=== PATIENT | male | born 1960 | race Caucasian/White ===

== ENCOUNTER 2016-06-17 20:17 | Emergency (ER) | payer OTHER ==
--- NOTE | 2016-06-17 20:25 | ED CARDIAC/CP/PALPITATIONS ---
History of Present Illness General Chief Complaint: Chest Pain Stated Complaint: BIBA ACHING CP SINCE 11AM, INTERMITTENT, SOB Source: patient Exam Limitations: no limitations Allergies Coded Allergies: NO KNOWN ALLERGIES (UNKNOWN 06/17/16) Triage Nurses Notes Reviewed? yes HPI: This patient is a 48-year-old male with a past medical history including hypertension who presented to the emergency department today for evaluation of intermittent chest pressure since 11:00 this morning. The patient reported that he first noticed the left-sided chest discomfort at about 11:00 this morning. He reported that it was coming and going on its own throughout the day. He reported that as the day went on he started noticing dizziness and some increased shortness of breath. He reported taking a deep breath makes the pain better. No specific provoking factors. The patient denied any headaches, visual changes, jaw pain, arm pain, numbness or tingling to extremities, abdominal pain, nausea, or vomiting. The patient reported that he has had 2 normal stress test in the past. He believes that he has seen Dr. Kim, machine cleaner, in the past. The patient was unable to quantify the pain on a pain scale. He reported that right now the pain is very minimal and has mostly subsided. (CUCO MEYER,JESSICA) Vital Signs & Intake/Output Vital Signs & Intake/Output Vital Signs Date Time Temp Pulse Resp B/P Pulse O2 O2 Flow FiO2 Ox Delivery Rate 06/18 0130 97.6 68 18 130/81 98 Room Air 06/17 2149 96 Room Air 06/17 2149 78 16 159/81 96 Room Air 06/17 2037 97.4 71 18 119/67 99 Room Air 06/17 2021 76 16 157/78 ED Intake and Output 06/18 0000 06/17 1200 Intake Total Output Total Balance Patient 222 lb Weight Reconcile Medications Alprazolam (Xanax) 1 MG TABLET 1 TAB PO TIDPRN PRN anxiety six tabs...[id number] Aspirin (Ecotrin*) 81 MG TABLET. 162 MG PO DAILY HEART/BLOOD (Reported) Cyanocobalamin (Vitamin B-12) (Unknown Strength) TABLET (Unknown Dose) PO DAILY SUPPLEMENT (Reported) Folic Acid (Unknown Strength) CAPSULE (Unknown Dose) PO DAILY SUPPLEMENT ( Reported) Lovastatin 20 MG TABLET 1 TAB PO DAILY CHOLESTEROL (Reported) Pyridoxine HCl (Vitamin B-6) (Unknown Strength) TABLET (Unknown Dose) PO DAILY SUPPLEMENT (Reported) Ramipril 5 MG CAPSULE 1 CAP PO BID BP (Reported) (KATIA LOPEZ,GERBER Arreola) Past History Travel History Traveled to [place] past 21 day No Medical History Any Pertinent Medical History? see below for history Cardiovascular: hypertension Surgical History Surgical History: non-contributory Psychosocial History What is your primary language [place] Family History Hx Contributory? No (JESSICA NORWOOD PA-C) Review of Systems Review of Systems Constitutional: Reports: no symptoms. EENTM: Reports: no symptoms. Respiratory: Reports: see HPI. Cardiovascular: Reports: see HPI. GI: Reports: no symptoms. Genitourinary: Reports: no symptoms. Musculoskeletal: Reports: no symptoms. Skin: Reports: no symptoms. Neurological/Psychological: Reports: see HPI. All Other Systems: Reviewed and Negative (JESSICA NORWOOD PA-C) Physical Exam Physical Exam Cardiovascular: regular rate/rhythm, normal peripheral pulses, NO MURMURS, RUBS, OR GALLOPS. nO CAROTID BRUITS Comments: Well-developed well-nourished person in no acute distress HEENT: Normal EENT exam, head normocephalic, moist mucous membranes PERRLA bilaterally Neck: Supple, no lymphadenopathy. No midline tenderness Back: Normal inspection Respiratory: No respiratory distress. Pulse and his. Lungs clear to auscultation bilaterally with no wheezes, rales, rhonchi Abdomen: Soft, nontender and nondistended with no rebound or guarding. No peritoneal signs Extremity: Normal and equal pulses. Capillary refill less than 2 seconds Neuro: Alert oriented x3, cranial nerves II through XII grossly intact. Skin: No appreciable rash on exposed skin, skin is warm and dry. Psych: Mood and affect is normal Core Measures ACS in differential dx? Yes Severe Sepsis Present: No Septic Shock Present: No (JESSICA NORWOOD PA-C) Progress Differential Diagnosis: AMI, aortic dissection, atrial fibrillation, cholecystitis, CHF/pulm edema, costochondritis, hyperkalemia, hyperthyroid, hyperventilation, musculoskeletal pain, myocarditis, pancreatitis, pericarditis, pneumonia, PSVT, pulmonary embolism, PUD/GERD, PVCs/PACs, unstable angina Diagnostic Imaging: Viewed by Me: Radiology Read. Discussed w/RAD: Radiology Read. CXR Impression: PATIENT: SIRENA BLOOD PRESENT AGE: 56 PATIENT ACCOUNT NO: [id number] : 56 LOCATION: [facility] ORDERING PHYSICIAN: JESSICA NORWOOD PA-C SERVICE DATE: 06/17/16 EXAM TYPE: RAD - XRY-CHEST XRAY, PA AND LATERAL EXAMINATION: XR CHEST CLINICAL INFORMATION: Chest pain. Assess for cardiomegaly. COMPARISON: Chest radiography 05/23/2010. TECHNIQUE: 2 views of the chest were obtained. FINDINGS: No evidence of cardiomegaly. The lungs are well expanded. No focal consolidation, pleural effusion, pulmonary edema, or pneumothorax. No acute osseous abnormalities. IMPRESSION: 1. No cardiomegaly. 2. No evidence of pulmonary edema. DICTATED BY: YAYA RODRIGUEZ MD DATE/TIME DICTATED:06/17/162125 FORM TAMPER:FERDINAND DATE/TIME TRANSCRIBED:06/17/162125 CONFIDENTIAL, DO NOT COPY WITHOUT APPROPRIATE AUTHORIZATION. <Electronically signed in Other Vendor System> SIGNED BY: YAYA RODRIGUEZ MD 06/17/162131 Initial ED EKG: normal axis, normal intervals, LVH, no ST T wave changes, 71 BPM Hand-Off Endorsed To: KATIA LOPEZ,GERBER Arreola Endorsed Time: 2300 Pending: labs (CUCO MEYER,JESSICA) Plan of Care: Orders Procedure Date/time Status TROPONIN LEVEL 06/18 29 Complete EKG 06/18 29 Active THYROID STIMULATING HORMONE 06/18 2019 Complete TROPONIN LEVEL 06/18 2019 Complete MAGNESIUM 06/18 2019 Complete FREE T4 06/18 2019 Complete COMPREHENSIVE METABOLIC PANEL 06/18 2019 Complete CBC WITHOUT DIFFERENTIAL 06/18 2019 Complete EKG 06/18 2019 Active Laboratory Tests 06/18/16 0030: Troponin I < 0.01 06/17/16 2030: Anion Gap 10, Estimated GFR > 60, BUN/Creatinine Ratio 16.3, Glucose 89, Calcium 9.4, Magnesium 2.0, Total Bilirubin 0.5, AST 20, ALT 34, Alkaline Phosphatase 64 , Troponin I < 0.01, Total Protein 6.7, Albumin 4.1, Globulin 2.6, Albumin/ Globulin Ratio 1.6, TSH 1.950, Free T4 1.10, CBC w Diff NO MAN DIFF REQ, RBC 5.22, MCV 82.0, MCH 26.7 L, RDW 13.3, MPV 8.8, Gran % 61.5, Lymphocytes % 30.5, Monocytes % 5.6, Eosinophils % 2.0, Basophils % 0.4, Absolute Granulocytes 6.6 H, Absolute Lymphocytes 3.3, Absolute Monocytes 0.6, Absolute Eosinophils 0.2, Absolute Basophils 0, PUBS MCHC 32.6 L Departure Departure Disposition: HOME OR SELF CARE Condition: Stable Clinical Impression Primary Impression: Chest pain Qualifiers: Chest pain type: unspecified Qualified Code: R07.9 - Chest pain, unspecified Referrals: MASOUD LOPEZ,MING CROSS MD,MING Garcia (PCP/Family) Additional Instructions: Follow-up with machine cleaner whose information has been provided packet. Return for any worsening symptoms or concerns. Departure Forms: Customer Survey General Discharge Information (JESSICA NORWOOD PA-C) Departure Prescriptions: Current Visit Scripts Alprazolam (Xanax) 1 TAB PO TIDPRN PRN anxiety #6 TAB six tabs...[id number] PA/TIMBER SELECTOR Co-Sign Statement Statement: ED Attending supervision documentation- [x] I saw and evaluated the patient. I have also reviewed all the pertinent lab results and diagnostic results. I agree with the findings and the plan of care as documented in the PA's/TIMBER SELECTOR's documentation. pt reports feeling better after xanax... He is chest pain free with benign exam. EKG is unchanged/nonacute. Trop neg x 2. Pt safe for discharge with close follow up by cardiology. Discussed at length. Pt feels comfortable going home. [] I have reviewed the ED Record and agree with the PA's/TIMBER SELECTOR's documentation. [] Additions or exceptions (if any) to the PAs/TIMBER SELECTOR's note and plan are summarized below: [] (KATIA LOPEZ,GERBER Arreola) Critical Care Note Critical Care Note Critical Care Time: 30-74 min (JESSICA NORWOOD PA-C)
[2016-06-17] MEDS ORDERED: VITAMIN B-650 M2 PO (20:35)
[2016-06-17] MEDS ORDERED: LOVASTATIN20 M1 PO (20:35)
[2016-06-17] MEDS ORDERED: ASPIRIN EC81 M1 PO (20:35)
[2016-06-17] MEDS ORDERED: RAMIPRIL5 M1 PO (20:35)
[2016-06-17] MEDS ORDERED: FOLIC ACID0.8 M1 PO (20:36)
[2016-06-17] MEDS ORDERED: VITAMIN B-121000 MC3 PO (20:36)
[2016-06-17 20:51] LABS: ABSOLUTE BASOPHIL COUNT 0 /CUMM (0.0-0.2); ABSOLUTE EOSINOPHIL COUNT 0.2 /CUMM (0.0-0.7); ABSOLUTE GRANULOCYTE CT 6.6 /CUMM (1.4-6.5); ABSOLUTE LYMPH COUNT 3.3 /CUMM (1.2-3.4); ABSOLUTE MONOCYTE COUNT 0.6 /CUMM (0.10-0.60); BASOPHIL % 0.4 % (0.0-2.0); GRANULOCYTE % 61.5 % (42.2-75.2); HEMATOCRIT 42.8 % (42-52); MEAN CORPUSCULAR HGB 26.7 PG (27.0-31.0); MEAN CORPUSCULAR HGB CONC 32.6 G/DL (33.0-37.0); MEAN PLATELET VOLUME 8.8 FL (7.4-10.4); PLATELET COUNT 274 /CUMM (130-400); RBC DISTRIBUTION WIDTH 13.3 % (11.5-14.5); RED BLOOD CELL CT 5.22 /CUMM (4.70-6.10); WHITE BLOOD CELL COUNT 10.7 /CUMM (4.8-10.8)
--- NOTE | 2016-06-17 21:32 | RADIOLOGY REPORT ---
EXAMINATION: XR CHEST CLINICAL INFORMATION: Chest pain. Assess for cardiomegaly. COMPARISON: Chest radiography 05/23/2010. TECHNIQUE: 2 views of the chest were obtained. FINDINGS: No evidence of cardiomegaly. The lungs are well expanded. No focal consolidation, pleural effusion, pulmonary edema, or pneumothorax. No acute osseous abnormalities. IMPRESSION: 1. No cardiomegaly. 2. No evidence of pulmonary edema.
[2016-06-18 01:30] VITALS: BP 130/81
[2016-06-18] MEDS ORDERED: XANAX1 M1 PO (01:55)
== END 2016-06-18 02:04 ==
LOC: ERH 20:17
PROVIDERS: Physician Assistant
DX: R07.89 Other chest pain (principal)
CPT/HCPCS: 93005; 93010

== ENCOUNTER 2016-06-26 23:11 | Emergency (ER) | payer OTHER ==
[~2016-06-26] VITALS: Ht 175.3 cm; Wt 99.8 kg
[~2016-06-26 23:11] MED LIST: ASPIRIN EC81 M1 PO; FOLIC ACID0.8 M1 PO; LOVASTATIN20 M1 PO; RAMIPRIL5 M1 PO; VITAMIN B-121000 MC3 PO; VITAMIN B-650 M2 PO; XANAX1 M1 PO
[2016-06-26 23:16] VITALS: BP 143/82
--- NOTE | 2016-06-26 23:52 | ED THROAT/DENTAL COMPLAINT ---
History of Present Illness General Chief Complaint: Sore Throat, Dental Pain Stated Complaint: BIBA FOR TOOTHACHE Source: patient Exam Limitations: no limitations Allergies Coded Allergies: NO KNOWN ALLERGIES (UNKNOWN 06/17/16) Triage Note: COMPLAINS OF R SIDE DENTAL PAIN SINCE THIS AFTERNOON Triage Nurses Notes Reviewed? yes HPI: This patient is a 56-year-old male who presented to the emergency department today brought in by ambulance for a toothache. The patient reported that his right lower wisdom tooth started hurting this afternoon. He reported the pain has gotten progressively worse and when asked to rate the pain on a pain scale he reported, "it gets there." He reported the pain is sharp and nonradiating. It is constant. No palliative factors. He reported that he is going to call his dentist in the morning but, "I just couldn't sleep." The patient denied any fevers or chills. No chest pain or difficulty breathing. No difficulty swallowing or neck pain. (CUCO MEYER,JESSICA) Vital Signs & Intake/Output Vital Signs & Intake/Output Vital Signs Date Time Temp Pulse Resp B/P Pulse O2 O2 Flow FiO2 Ox Delivery Rate 06/26 2355 Room Air 06/26 2316 98.3 72 18 143/82 74 ED Intake and Output 06/27 0000 06/26 1200 Intake Total Output Total Balance Patient 220 lb Weight Reconcile Medications Alprazolam (Xanax) 1 MG TABLET 1 TAB PO TIDPRN PRN anxiety six tabs...[id number] Aspirin (Ecotrin*) 81 MG TABLET.DR 162 MG PO DAILY HEART/BLOOD (Reported) Cyanocobalamin (Vitamin B-12) (Unknown Strength) TABLET (Unknown Dose) PO DAILY SUPPLEMENT (Reported) Folic Acid (Unknown Strength) CAPSULE (Unknown Dose) PO DAILY SUPPLEMENT ( Reported) Lovastatin 20 MG TABLET 1 TAB PO DAILY CHOLESTEROL (Reported) Naproxen (Naprosyn) 500 MG TABLET 1 TAB PO BID PRN pain Pyridoxine HCl (Vitamin B-6) (Unknown Strength) TABLET (Unknown Dose) PO DAILY SUPPLEMENT (Reported) Ramipril 5 MG CAPSULE 1 CAP PO BID BP (Reported) (WYATT LOPEZ,MARNIE Calle) Past History Travel History Traveled to [place] past 21 day No Medical History Any Pertinent Medical History? see below for history Neurological: NONE EENT: NONE Cardiovascular: hypertension Respiratory: NONE Gastrointestinal: NONE Hepatic: NONE Renal: NONE Musculoskeletal: NONE Psychiatric: NONE Endocrine: NONE Blood Disorders: NONE Cancer(s): NONE Surgical History Surgical History: non-contributory Psychosocial History What is your primary language Swedish Tobacco Use: Never used ETOH Use: denies use Illicit Drug Use: denies illicit drug use Family History Hx Contributory? No (JESSICA NORWOOD PA-C) Review of Systems Review of Systems Constitutional: Reports: no symptoms. EENTM: Reports: see HPI. Respiratory: Reports: no symptoms. Cardiovascular: Reports: no symptoms. GI: Reports: no symptoms. Musculoskeletal: Reports: no symptoms. Skin: Reports: no symptoms. Neurological/Psychological: Reports: no symptoms. All Other Systems: Reviewed and Negative (JESSICA NORWOOD PA-C) Physical Exam Physical Exam Mouth/Throat: normal mouth inspection, pharynx normal, TENDERNESS TO PALPATION OVER THE RIGHT LOWER MOLAR. nO OROPHARYNGEAL CONCERNS OR EDEMA. nO GINGIVAL ERYTHEMA. nO ABSCESS FORMATION Comments: Well-developed well-nourished person in no acute distress HEENT: Moist mucous membranes Neck: Supple, no lymphadenopathy Back: Nontender Respiratory: No respiratory distress. Speaking in full sentences Extremities: No edema, full range of motion Neuro: Alert and oriented x3 Psych: Mood affect normal, normal memory normal judgment. Skin: Warm and dry, no rash on exposed skin Core Measures ACS in differential dx? No Severe Sepsis Present: No Septic Shock Present: No (JESSICA NORWOOD PA-C) Progress Differential Diagnosis: aspirated tooth, carious tooth, epiglottitis, Ludwigs angina, meningitis, odontogenic abscess, yenifer-tonsillar abscess, pharyngeal for. body, stomatitis/gingivitis, strep pharyngitis, tooth fracture Plan of Care: Current Medications Sig/Jesika Start time Last Medication Dose Stop Time Status Admin Tramadol HCl 50 MG ONCE ONE 06/26 2344 UNVr (Ultram) 06/26 2345 Departure Departure Disposition: HOME OR SELF CARE Condition: Stable Clinical Impression Primary Impression: Toothache Referrals: CROSS MING LOPEZ (PCP/Family) Additional Instructions: Take medication as prescribed. Please call your dentist tomorrow to schedule an appointment. Departure Forms: Customer Survey General Discharge Information Prescriptions: Current Visit Scripts Naproxen (Naprosyn) 1 TAB PO BID PRN pain #15 TAB (JESSICA NORWOOD PA-C) PA/PHYSICIAN ASSISTANT PSYCHIATRY Co-Sign Statement Statement: ED Attending supervision documentation- [] I saw and evaluated the patient. I have also reviewed all the pertinent lab results and diagnostic results. I agree with the findings and the plan of care as documented in the PA's/PHYSICIAN ASSISTANT PSYCHIATRY's documentation. [X] I have reviewed the ED Record and agree with the PA's/PHYSICIAN ASSISTANT PSYCHIATRY's documentation. [] Additions or exceptions (if any) to the PAs/PHYSICIAN ASSISTANT PSYCHIATRY's note and plan are summarized below: [] (WYATT LOPEZ,MARNIE Calle)
[2016-06-26] MEDS ORDERED: NAPROSYN500 M1 PO (23:59)
== END 2016-06-27 00:23 ==
LOC: ERH 23:11
DX: K59.00 Constipation, unspecified (principal)